=== PATIENT | female | born 1995 | race Caucasian/White ===

== ENCOUNTER 2019-09-17 19:44 | Emergency (ER) | payer BC, OTHER ==
[~2019-09-17] VITALS: Ht 182.9 cm; Wt 57.6 kg
--- NOTE | 2019-09-17 21:20 | NUR ---
PATIENT CAME IN WALKING IN ROOM 4 WITH STEADY GAIT. PATIENT STATE'S THAT SHE HAD SYNCOPE EPISODE EARLIER THIS AFTERNOON, SHE HAS SIMILAR EPISODE LAST WEEK AND WAS HOSPITALIZED. SHE HAS HX OF EATING DISORDER. DENIES HITTING HEAD. IN NO ACUTE DISTRESS, BREATHING EVEN AND UNLABORED AT THIS TIME. ON CONTINUE PULSE OX SATURATING 98% . A/O X4, NO NYSTAGMUS, PERRLA, PATIENT STATE'S THAT SHE FEEL DIZZY WHEN SHE STANDS, ORTHOSTATIC BLOOD PRESSURE TAKEN, NEGATIVE,
[2019-09-17] MEDS: IV NS 0.9% 1,000 ML BAG IV ONE (21:45)
--- NOTE | 2019-09-17 23:12 | NUR ---
PT APPEARS TO BE RESTING COMFORTABLY WITH NO S/S OF PAIN OR DISTRESS. VSS.
[2019-09-17 23:41] VITALS: BP 101/60
--- NOTE | 2019-09-17 23:48 | NUR ---
IV removed. Catheter intact and site benign. Pressure and 4x4 applied to site. No bleeding noted. Patient discharged to home in stable condition. Written and verbal after care instructions given. Patient verbalizes understanding of instruction. VSS. PATIENT AMBULATED OUT WITH STUDY GAIT WITH MOTHER.
== END 2019-09-17 23:46 | disposition home or self-care (01) ==
LOC: ER 19:48
DX: R55 Syncope and collapse (principal); F50.9 Eating disorder, unspecified; Z60.2 Problems related to living alone
CPT/HCPCS: 96360; 96361; 99283; J7030 ×2